=== PATIENT | female | born 1985 | race Caucasian/White ===

== ENCOUNTER 2021-03-09 20:49 | Emergency (ER) | payer OTHER ==
[2021-03-09] MEDS ORDERED: BACLOFEN 10MG T10 MG PO (23:09)
[2021-03-09] MEDS ORDERED: NAPROXEN500 MG PO (23:09)
== END 2021-03-09 23:25 | disposition home or self-care (01) ==
LOC: FER 20:49
DX: M54.2 Cervicalgia (principal); R51.9 Headache, unspecified; Z88.2 Allergy status to sulfonamides; V49.50XA Passenger injured in collision with unspecified motor vehicles in traffic accident, initial encounter; Y92.410 Unspecified street and highway as the place of occurrence of the external cause
CPT/HCPCS: 70450; 72125